=== PATIENT | female | born 1950 | race Caucasian/White ===

== ENCOUNTER → 2020-01-25 12:04 | Outpatient (CLI) | payer OTHER, SELFPAY ==
[2020-01-28 22:18] LABS: COVID19 Sendout Not Detected (Not Detect)
== END ==
PROVIDERS: Visit Provider Nurse Practitioner
DX: Z01.812 Encounter for preprocedural laboratory examination (principal)
CPT/HCPCS: 87635

== ENCOUNTER → 2024-03-08 09:09 | Outpatient (CLI) | payer OTHER, SELFPAY ==
--- NOTE | 2024-03-08 09:14 | DI.MRI.S_ITS ---
PROCEDURE: MR CERVICAL SPINE WO CON INDICATIONS: EVAL CERVICAL RADICULOPATHY TECHNIQUE: Noncontrast sagittal T1 spin echo and T2 fast spin echo, sagittal STIR, foraminal oblique sagittal T2 fast spin echo, and axial gradient echo or T2 fast spin echo through the cervical spine. COMPARISON: None. FINDINGS: Image quality: Excellent. Alignment and Curvature: Trace anterolisthesis of C3 on C4. Bone Marrow: Marrow demonstrates normal overall signal. Spinal Cord: Visualized spinal cord has normal size and signal. No cerebellar tonsillar herniation. Paraspinous Soft Tissues: No paravertebral masses. Prevertebral soft tissues are normal in thickness. C2-C3: Mild bilateral facet hypertrophy. No canal stenosis or foraminal stenosis. C3-C4: Trace anterolisthesis. Left greater than right facet hypertrophy. No canal stenosis. Bwbt-va-qxxykehm left foraminal stenosis. C4-C5: Chronic disc height loss. Prominent bilateral uncovertebral joint hypertrophy. Posterior disc osteophyte complex. Mild canal stenosis. AP diameter of the central canal is 9.1 mm. Reference axial image 25 of series 4. The moderate to severe bilateral foraminal narrowing with a degree of bilateral foraminal C5 nerve root impingement. C5-C6: Chronic disc height loss. Prominent bilateral uncovertebral joint osteophytes. Posterior disc osteophyte complex flattening the ventral cord. Mild canal stenosis. AP diameter of the central canal measures 9.1 mm. Reference axial image 29 of series 4. Severe bilateral foraminal narrowing with bilateral foraminal C5 nerve root impingement. C6-C7: Posterior disc post osteophyte abutting the cord. Borderline canal stenosis. AP diameter of the central canal is 9.8 mm. Reference axial image 33 of series 4. Bilateral uncovertebral joint hypertrophy. Moderate bilateral foraminal narrowing with mild flattening deformity on the exiting bilateral C7 nerve roots. C7-T1: No canal stenosis. Mild right foraminal stenosis. IMPRESSION: 1. Diffuse spondylitic change as described above. 2. Canal stenosis is [id number] at C4-C5, oxij-li-iijiaxqz at C5-C6, and borderline at C6-C7. 3. Multilevel foraminal narrowing as described above. Findings include moderate to severe bilateral foraminal narrowing at C4-C5, and severe bilateral foraminal narrowing at C5-C6. Dictated by: Isreal Jj M.D. on 03/08/2024 at 10:43 Approved by: Isreal Jj M.D. on 03/08/2024 at 12:32
== END ==
PROVIDERS: PCP Family Medicine; Referring Provider Orthopaedic Surgery; Visit Provider Orthopaedic Surgery
DX: M47.22 Other spondylosis with radiculopathy, cervical region (principal); M48.02 Spinal stenosis, cervical region; M25.78 Osteophyte, vertebrae
CPT/HCPCS: 72141